=== PATIENT | male | born 1975 | race Caucasian/White ===

== ENCOUNTER 2018-02-07 15:10 | Emergency (ER) | payer SELFPAY ==
[2018-02-07] MEDS ORDERED: ZOFRAN ONE (15:11)
[2018-02-07] MEDS ORDERED: DILAUDID ONE (15:11)
[2018-02-07] MEDS ORDERED: DILAUDID IV ONE ×2 (15:14→16:37)
[2018-02-07] MEDS ORDERED: NACL 0.9% 1000 ML 1,000 ML IV ONE ×2 (15:14→16:37)
[2018-02-07] MEDS ORDERED: ZOFRAN IV ONE (15:14)
[2018-02-07] MEDS ORDERED: ROCEPHIN/NS 1 GM/50 ML 1 GM/50 ML BAG IV ONE (15:14)
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
[2018-02-07 15:28] VITALS: BP 98/67
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
[2018-02-07 15:44] LABS: Hematocrit 41.7 % (35.5-45.6); Hemoglobin 13.9 gm/dl (11.8-15.2); Mean Corpuscular HGB Conc 33 % (32-34); Mean Corpuscular Hemoglobin 31 pg (28-32); Mean Corpuscular Volume 92 fl (84-94); Platelet Count 246 K/mm3 (140-440); Red Blood Count 4.55 M/mm3 (3.65-5.03); Red Cell Distribution Width 13.9 % (13.2-15.2)
[2018-02-07 15:50] LABS: INR 0.95 (0.87-1.13)
[2018-02-07 15:51] LABS: Partial Thromboplastin Time 29.2 Sec. (24.2-36.6)
[2018-02-07 15:57] LABS: BUN/Creatinine Ratio 10; Blood Urea Nitrogen 11 mg/dL (9-20); Hemolysis Index 12
== END 2018-02-07 16:40 | disposition other institution (70) ==
LOC: ED 15:10
DX: S92.901B Unspecified fracture of right foot, initial encounter for open fracture (principal); W34.09XA Accidental discharge from other specified firearms, initial encounter; Y93.89 Activity, other specified; Y99.8 Other external cause status; Y92.89 Other specified places as the place of occurrence of the external cause
CPT/HCPCS: 36415; 73630; 80048; 85027; 85610; 85730; 86850; 86900; 86901; 96365; 96375; 96376; 99285; J0696; J1170; J2405; J7030